=== PATIENT | male | born 1945 | race Caucasian/White ===

== ENCOUNTER → 2019-07-07 | Outpatient (CLI) | payer OTHER ==
[~2019-07-07] MED LIST: GLUCOPHAGE500 MG PO; LEVO-T50 MCG PO; LIPITOR40 MG PO; METFORMIN HCL500 M3 PO; PROSCAR 5MG TABL5 M1 PO; RESTORIL15 M1 PO; WELLBUTRIN SR150 M1 PO; ZESTRIL20 MG PO; ZETIA10 MG PO; ZOLOFT50 M1 PO
== END ==
LOC: SJCVC 15:38
DX: R94.31 Abnormal electrocardiogram [ECG] [EKG] (principal); I10 Essential (primary) hypertension; E11.9 Type 2 diabetes mellitus without complications; E78.5 Hyperlipidemia, unspecified; Z79.899 Other long term (current) drug therapy

== ENCOUNTER → 2019-07-12 | Outpatient (CLI) | payer OTHER | LOC: CAT 08:26 → SJCVCIMAG 08:26 | DX: I25.10 Atherosclerotic heart disease of native coronary artery without angina pectoris (principal); R09.89 Other specified symptoms and signs involving the circulatory and respiratory systems; E78.00 Pure hypercholesterolemia, unspecified; I70.0 Atherosclerosis of aorta ==

== ENCOUNTER → 2019-07-13 | Outpatient (CLI) | payer OTHER | LOC: SJCVCIMAG 08:51 | DX: R94.31 Abnormal electrocardiogram [ECG] [EKG] (principal); I15.9 Secondary hypertension, unspecified; E78.00 Pure hypercholesterolemia, unspecified; E78.5 Hyperlipidemia, unspecified ==

== ENCOUNTER → 2019-07-21 | Outpatient (CLI) | payer OTHER ==
[~2019-07-21] VITALS: Ht 175.3 cm; Wt 90.7 kg
[2019-07-21 07:24] VITALS: BP 137/70
[2019-07-21 07:39] LABS: HEMATOCRIT 37.1 % (42.0-52.0); HEMOGLOBIN 12.7 gm/dL (14.0-18.0); MCHC 34.3 g/dL (28.0-37.0); MCV 93.4 fL (80.0-100.0); RBC 3.97 mil/uL (4.50-6.00); RDW 12.6 % (10.5-14.5); WBC 5.1 thou/uL (4.0-11.0)
[2019-07-21 07:44] LABS: CALCIUM 9.5 mg/dL (8.5-10.1); CREATININE 1.3 mg/dL (0.7-1.3); POTASSIUM 4.4 mmol/L (3.5-5.1)
--- NOTE | 2019-07-21 08:00 | EKG ---
[facility] [address] ELECTROCARDIOGRAM REPORT Name: DAVID MCMULLEN [id number] Admission: 07/21/19 Attend Phys: Yohannes Arzate MD, Discharge: Date of : 47 Report #: [id number] THIS REPORT FOR: cc: TONI - [place] family physician/PCP FAM - No family physician/PCP Neto Masters MD ~ THIS REPORT FOR: //name// [facility] Test Date: 2019-07-21 Test Time: 07:05:47 Pat Name: DAVID MCMULLEN Department: Room: Gender: Central Supply Assistant: [facility] : 1945 Requested By: Yohannes Arzate Order Number: [id number] MD: Neto Masters Measurements Intervals [place] Rate: 80 P: 47 [place]: 234 QRS: 10 QRSD: 91 T: -26 QT: 377 QTc: 435 Interpretive Statements Sinus rhythm Prolonged [place] interval Inferior infarct, age indeterminate No previous ECG available for comparison Electronically Signed On 07-21-2019 7:59:59 FORMING YARDAGE CONTROL OPERATOR by Neto Masters [email or web address] <ELECTRONICALLY SIGNED> By: Neto Masters MD 07/21/19 0759 Neto Masters MD /ESTEFANY
--- NOTE | 2019-07-21 17:00 | CATHLAB ---
[facility] [place] [address] INVASIVE PROCEDURE REPORT Name: DAVID MCMULLEN Room #: REG NERI DominiqueIvoryNicanor.#: [id number] Admission: 07/21/19 Attend Phys: Yohannes Arzate MD, Discharge: Date of : 47 Report #: [id number] THIS REPORT FOR: cc: FAM - No family physician/PCP FAM - No family physician/PCP Yohannes Arzate MD [facility] ~ APPROVED REPORT Study performed: 07/21/2019 08:29:03 Patient Details Patient Status: Out-Patient Room #: The patient is a 74 year-old male Event Personnel Yohannes Arzate Tire Mold Engraver, Сергей Miguel RN, Bolivar Villalobos Monitor, Yovani Mccollum RTR Tawnya Bosch Ja'net RTR Monitor Procedures Performed Right and Left Heart Cath w/or w/o Coronarie [id number] [facility] Aortogram Abdominal Peripheral Angio 167823 FFR 8622361 FFR Indication Chest pain Procedure Narrative The Right Groin^ was infiltrated with 1% Lidocaine subcutaneous anesthesia. A PINNACLE 6FR Sheath #[id number] sheath was inserted into the . Coronary angiography was performed using coronary diagnostic catheters. The right coronary system was accessed and visualized with a 6FR 3DRC #[id number] catheter. The left coronary system was accessed and visualized with a JL4 catheter. The left ventricle was accessed and visualized with a PIGTAIL catheter. Left ventriculogram was performed in 30 degree projection. An aortogram of the abdominal aorta was performed. Closure device was deployed with a 6 Fr MYNXGRIP 6/7F #[id number]. The patient tolerated the procedure well and there were no complications associated with the procedure. There was no hematoma. Intraoperative Conscious Sedation Sedation start time: 9.16 Case end Time: 10.22 Fentanyl 50 mcg Versed 2 mg [facility] [address] [place] [address] INVASIVE PROCEDURE REPORT Name: DAVID MCMULLEN Room #: REG Anastasiia#: [id number] Admission: 07/21/19 Attend Phys: Yohanens Arzate, Discharge: Date of : 47 Report #: [id number] Fluoro Time: 7.38 minutes Dose: DAP 8160.00 cGycm2 962 mGy Contrast Type and Amount: Visipaque 190 ml Hemodynamics The right atrial mean pressure is 16 mmHg. The right ventricular pressure is 42/10 mmHg. The pulmonary artery pressure is 39/15 mmHg with a mean of 25 mmHg. The mean pulmonary capillary wedge pressure is 19 mmHg. The aortic pressure is 165/71 mmHg with a mean of 102 mmHg. The left ventricular pressure is 162/15 mmHg with a mean of mmHg. The left ventricular end diastolic pressure is 23 mmHg. The cardiac output using thermo method is 4.40 L/min. The cardiac index using thermo method is 2.13 L/min/m2. PCI Technique Lesion Percutaneous coronary intervention was performed on the Unspecified. A LAUNCHER 6FR EBU 3.5 #570304 Guide Catheter was used to engage the ostium. A [place] Pressure Wire 175 cm 167195 Interventional Guidewire was used to cross the lesion. BALLOON DILATION LAD PRE-.99 POST .92 CIRC PRE-.98 POST PROX 98-DIST .94 Conclusion #1 successful right heart catheterization with cardiac output by thermodilution see above hemodynamics. #2 left main mildly calcified patent giving rise to LAD and circumflex #3 LAD with an eccentric 60-70% proximal lesion with calcification and a long mid vessel lesion of 60-70%. Fractional flow PressureWire was utilized. Value was 0.91 on proximal lesion and mid vessel lesion. No intervention #3 circumflex OM also with eccentric 60-70% proximal and then the first OM is eccentric 60-70% lesion. FFR also performed here was 0.94 on distal lesion 0.98 on proximal lesion not physiologically significant. 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 It is faintly fills in appears chronic #5 normal left ventricular size with an inferior basilar inferior lateral small segment of hypokinesis. 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 #6 normal abdominal aortogram with mild to moderately disease renal [facility] [address] [place] [address] INVASIVE PROCEDURE REPORT Name: DAVID MCMULLEN Room #: YONATAN Laurent#: [id number] Admission: 07/21/19 Attend Phys: Yohannes Arzate, Discharge: Date of : 47 Report #: [id number] arteries not selectively injected no aortic aneurysm. Recommendations plan: Continue aggressive risk factor modification. We will increase or add [place] generically to his statin. Continue other medications. No metformin for 48 hours. Follow-up 2 months with lipid profile. These vessels and particularly the LAD has moderately significant lesions with borderline FFR results. We'll follow closely. Aggressive risk factor modification. <ELECTRONICALLY SIGNED> By: Yohannes Arzate MD, FACC 07/21/191658 58 58 Yohannes Arzate MD, FACC /INF
== END | disposition home or self-care (01) ==
LOC: CATH 06:29
PROVIDERS: Internal Medicine Cardiovascular Disease
DX: R07.9 Chest pain, unspecified (principal); I25.10 Atherosclerotic heart disease of native coronary artery without angina pectoris; I70.1 Atherosclerosis of renal artery; I10 Essential (primary) hypertension; E11.9 Type 2 diabetes mellitus without complications; E78.00 Pure hypercholesterolemia, unspecified; E03.9 Hypothyroidism, unspecified; Z86.73 Personal history of transient ischemic attack (TIA), and cerebral infarction without residual deficits; Z98.890 Other specified postprocedural states; Z87.891 Personal history of nicotine dependence; Z79.899 Other long term (current) drug therapy

== ENCOUNTER → 2019-09-19 | Outpatient (CLI) | payer OTHER | LOC: SJCVC 11:37 → SJCVCIMAG 11:37 | DX: I44.0 Atrioventricular block, first degree (principal); I70.1 Atherosclerosis of renal artery; I10 Essential (primary) hypertension; I25.10 Atherosclerotic heart disease of native coronary artery without angina pectoris; E78.5 Hyperlipidemia, unspecified ==

== ENCOUNTER → 2019-12-25 | Outpatient (CLI) | payer OTHER | LOC: SJCVCIMAG 08:59 | PROVIDERS: ATTEND Internal Medicine Cardiovascular Disease | DX: R00.0 Tachycardia, unspecified (principal); I25.10 Atherosclerotic heart disease of native coronary artery without angina pectoris; I10 Essential (primary) hypertension; E78.5 Hyperlipidemia, unspecified; E78.00 Pure hypercholesterolemia, unspecified; I70.1 Atherosclerosis of renal artery; R93.1 Abnormal findings on diagnostic imaging of heart and coronary circulation; E11.9 Type 2 diabetes mellitus without complications; Z79.82 Long term (current) use of aspirin; Z79.899 Other long term (current) drug therapy ==

== ENCOUNTER → 2020-06-27 | Outpatient (CLI) | payer OTHER | LOC: SJCVCIMAG 14:45 → SJCVC 14:45 | PROVIDERS: ATTEND Internal Medicine Cardiovascular Disease | DX: I65.23 Occlusion and stenosis of bilateral carotid arteries (principal); I77.9 Disorder of arteries and arterioles, unspecified; I25.10 Atherosclerotic heart disease of native coronary artery without angina pectoris; I10 Essential (primary) hypertension; R93.1 Abnormal findings on diagnostic imaging of heart and coronary circulation; E78.00 Pure hypercholesterolemia, unspecified; E11.9 Type 2 diabetes mellitus without complications; Z79.82 Long term (current) use of aspirin; Z79.84 Long term (current) use of oral hypoglycemic drugs; Z79.899 Other long term (current) drug therapy ==

== ENCOUNTER → 2020-07-05 | Outpatient (CLI) | payer OTHER ==
[~2020-07-05] VITALS: Ht 175.3 cm; Wt 90.9 kg
[~2020-07-05] MED LIST changes: +ASA81BEC PO; +JARDIANCE10 MG PO; +NORVASC10 MG PO
[2020-07-05 08:08] VITALS: BP 131/73
--- NOTE | 2020-07-05 16:23 | CATHLAB ---
[facility] [place] [address] INVASIVE PROCEDURE REPORT Name: DAVID MCMULLEN Room #: [id number] Admission: 07/05/20 Attend Phys: Bolivar Padilla MD Discharge: Date of : 47 Report #: [id number] THIS REPORT FOR: cc: FRITZ FERRER FAMILY PHYSICIAN or PCP Yohannes Arzate MD [facility] ~ APPROVED REPORT Study performed: 07/05/2020 11:48:40 Patient Details Patient Status: Out-Patient Room #: The patient is a 75 year-old male Event Personnel Yohannes Arzate Commercial Account Executive, Esperanza Tovar RN RN, Ashley Coleman RTR ScrChun gill Sherra RTR Monitor, Abi Nowak RN inspector rag sorting Performed Left Heart Cath w/or w/o Coronaries [id number] [facility] Hemostasis w/ Mynx Indication Chest pain Procedure Narrative The was infiltrated with 1% Lidocaine subcutaneous anesthesia. A SHEATH BRITE-TIP 6F X 11CM ([id number]) sheath was inserted into the RFA^. Coronary angiography was performed using coronary diagnostic catheters. The right coronary system was accessed and visualized with a 6FR 3DRC #[id number] catheter. The left coronary system was accessed and visualized with a JL4 catheter. The left ventricle was accessed and visualized with a PIGTAIL catheter. Left ventriculogram was performed in 30 degree projection. Closure device was deployed with a 6 Fr MYNXGRIP 6/7F #[id number]. The patient tolerated the procedure well and there were no complications associated with the procedure. There was no hematoma. Intraoperative Conscious Sedation Sedation start time: 1043 Case end Time: 1250 Fentanyl 100 mcg Versed 2 mg SEDATION TIME/AMOUNTS, CONTRAST TOTALS AND FLUORO DOSES/TIME ARE ALL [facility] [address] [place] [address] INVASIVE PROCEDURE REPORT Name: DAVID MCMULLEN Room #: REG Anastasiia#: [id number] Admission: 07/05/20 Attend Phys: Bolivar Padilla, Discharge: Date of : 47 Report #: [id number] FROM A COMBO CASE WITH DR PADILLA Fluoro Time: 8.00 minutes Dose: DAP 23773.20 cGycm2 2157 mGy Contrast Type and Amount: Omnipaque 247 ml Hemodynamics The aortic pressure is 156/76 mmHg with a mean of 110 mmHg. The left ventricular pressure is 142/6 mmHg with a mean of mmHg. The left ventricular end diastolic pressure is 10 mmHg. Conclusion 1. Normal left ventricular size and systolic function EF 60%. #2 left main mildly disease giving rise to LAD and circumflex. #3 LAD moderately heavy calcification then a proximal mid vessel long lesion of 70 to 75% which shows some progression from exam of a year ago. Diffuse distal disease that extends around the apex. #4 circumflex OM nondominant with an eccentric 50 to 60% proximal lesion and a moderate size OM branch well-preserved. #5 dominant right coronary artery with eccentric proximal lesion of 60% off of the ostium. With preserved distal vessel dominant vessel. Recommendations and plan: Continue aggressive risk factor modification. Some progression of disease in LAD proximal stenosis. Will evaluate noninvasively for significant ischemia. Patient currently asymptomatic. <ELECTRONICALLY SIGNED> By: Yohannes Arzate MD, FACC 07/05/20 1623 162 162 Yohannes Arzate MD, FACC /INF
== END ==
LOC: CATH 07:15
PROVIDERS: ATTEND Nuclear Medicine Nuclear Cardiology
DX: I65.23 Occlusion and stenosis of bilateral carotid arteries (principal); I12.9 Hypertensive chronic kidney disease with stage 1 through stage 4 chronic kidney disease, or unspecified chronic kidney disease; E11.22 Type 2 diabetes mellitus with diabetic chronic kidney disease; N18.9 Chronic kidney disease, unspecified; E78.5 Hyperlipidemia, unspecified; I25.10 Atherosclerotic heart disease of native coronary artery without angina pectoris; E78.00 Pure hypercholesterolemia, unspecified; E03.9 Hypothyroidism, unspecified; Z87.891 Personal history of nicotine dependence; Z79.899 Other long term (current) drug therapy; Z79.84 Long term (current) use of oral hypoglycemic drugs

== ENCOUNTER → 2020-10-02 | Outpatient (CLI) | payer OTHER | LOC: SJCVCIMAG 09:52 | PROVIDERS: ATTEND Nuclear Medicine Nuclear Cardiology | DX: I49.3 Ventricular premature depolarization (principal); R06.00 Dyspnea, unspecified; R42 Dizziness and giddiness; I25.10 Atherosclerotic heart disease of native coronary artery without angina pectoris; E78.5 Hyperlipidemia, unspecified; E11.9 Type 2 diabetes mellitus without complications; Z79.82 Long term (current) use of aspirin; Z79.84 Long term (current) use of oral hypoglycemic drugs; Z79.899 Other long term (current) drug therapy ==

== ENCOUNTER → 2021-01-07 | Outpatient (CLI) | payer OTHER | LOC: SJCVCIMAG 09:33 | PROVIDERS: ATTEND Nuclear Medicine Nuclear Cardiology | DX: I65.23 Occlusion and stenosis of bilateral carotid arteries (principal); I77.9 Disorder of arteries and arterioles, unspecified; I25.10 Atherosclerotic heart disease of native coronary artery without angina pectoris; I10 Essential (primary) hypertension; E78.00 Pure hypercholesterolemia, unspecified; E11.9 Type 2 diabetes mellitus without complications; E03.9 Hypothyroidism, unspecified; Z79.82 Long term (current) use of aspirin; Z79.84 Long term (current) use of oral hypoglycemic drugs; Z79.899 Other long term (current) drug therapy; Z86.73 Personal history of transient ischemic attack (TIA), and cerebral infarction without residual deficits ==

== ENCOUNTER → 2021-07-09 | Outpatient (CLI) | payer OTHER | LOC: SJCVC 11:00 → SJCVCIMAG 11:00 | PROVIDERS: ATTEND Internal Medicine Cardiovascular Disease | DX: I65.23 Occlusion and stenosis of bilateral carotid arteries (principal); E78.00 Pure hypercholesterolemia, unspecified; I25.10 Atherosclerotic heart disease of native coronary artery without angina pectoris; I77.9 Disorder of arteries and arterioles, unspecified; E11.9 Type 2 diabetes mellitus without complications; I10 Essential (primary) hypertension; E03.9 Hypothyroidism, unspecified; R06.09 Other forms of dyspnea; Z79.82 Long term (current) use of aspirin; Z79.84 Long term (current) use of oral hypoglycemic drugs; Z79.899 Other long term (current) drug therapy; Z72.89 Other problems related to lifestyle; Z82.49 Family history of ischemic heart disease and other diseases of the circulatory system ==

== ENCOUNTER → 2021-07-16 | Outpatient (CLI) | payer OTHER | LOC: SJCVCIMAG 07:09 | PROVIDERS: ATTEND Internal Medicine Cardiovascular Disease | DX: R94.31 Abnormal electrocardiogram [ECG] [EKG] (principal); I25.10 Atherosclerotic heart disease of native coronary artery without angina pectoris; I25.2 Old myocardial infarction ==